=== PATIENT | female | born 1975 | race American Indian/Alaskan Native ===

== ENCOUNTER 2017-06-01 11:39 | Emergency (ER) | payer MEDICARE ==
[2017-06-01 11:55] VITALS: BP 138/94
[2017-06-01] MEDS ORDERED: DELTASONE PO ONE (12:49)
[2017-06-01] MEDS ORDERED: DUONEB *Not for PRN Use IH ONE ×2 (12:49→14:57)
--- NOTE | 2017-06-01 12:57 | Emergency Department Report ---
<JEFFREY MCKENNA - Last Filed: 06/01/17 15:53> ED General Adult HPI - General Chief complaint: Adult Asthma Stated complaint: ASTHMA/CHEST PAIN Time Seen by Provider: 06/01/17 12:27 Source: patient Mode of arrival: Ambulatory Limitations: No Limitations - History of Present Illness Initial comments: pt is a 41 y/o aaf with hx of asthma with frequent hospitalization per patient , pt endorses cough wheezing sob, fever chills, and chest tightness x 3 days, there is no dizziness no lightheadedness no headache no n/v pt denies smoking no hx of [place], symptoms are exacerbated by activity as shortness of breath however pt advises this is usual course of Asthma exacerbation symptoms as of past, pt advises that she has tried albuterol inhaler at home but without improvement in symptoms , pt has primary care doctor, Dr. Mancia however unable to get appointment today. Onset/Timin -: days(s) Radiation: non-radiation Severity scale (0 -10): 5 Quality: other (shortness of breath ) Consistency: constant Improves with: other (albuterol inhaler) Worsens with: other (activity ) Associated Symptoms: chest pain, cough, shortness of breath. denies: confusion , diaphoresis, fever/chills, headaches, loss of appetite, malaise, nausea/ vomiting, rash, seizure, syncope, weakness Treatments Prior to Arrival: none - Related Data Home Medications Medication Instructions Recorded Confirmed Last Taken Cetirizine HCl [Zyrtec] 10 mg PO DAILY 07/31/13 10/27/15 04/01/14 Metoclopramide HCl [Reglan] 5 mg PO TIDAC 07/31/13 10/27/15 04/01/14 Montelukast [Singulair] 10 mg PO QPM 07/31/13 10/27/15 04/01/14 Omeprazole [Prilosec] 20 mg PO QDAY 07/31/13 10/27/15 04/01/14 Ranitidine HCl [Zantac] 300 mg PO QDAY 07/31/13 10/27/15 04/01/14 Previous Rx's Medication Instructions Recorded Last Taken Type Albuterol Sulfate [Ventolin HFA] 2 puff IH Q4H PRN #1 hfa.aer.ad 10/27/15 Unknown Rx Fluticasone/Salmeterol [Advair 1 puff IH BID #1 disk.w.dev 10/27/15 Unknown Rx Diskus 500-50 mcg] predniSONE [Deltasone] 40 mg PO QDAY 5 Days 10/27/15 Unknown Rx Azithromycin [Zithromax Z-MERLY] 250 mg PO DAILY #4 tab 06/01/17 Unknown Rx predniSONE [Deltasone] 40 mg PO DAILY #10 tablet 06/01/17 Unknown Rx Allergies Allergy/AdvReac Type Severity Reaction Status Date / Time kiwi Allergy Unknown Verified 06/01/17 11:57 methylprednisolone sodium Allergy Swelling Verified 06/01/17 11:56 succinate [From Solu-Medrol] peach Allergy Unknown Verified 06/01/17 11:57 peanut Allergy Angioedema Verified 06/01/17 11:56 shellfish derived Allergy Unknown Verified 06/01/17 11:56 soybean Allergy Unknown Verified 06/01/17 11:56 strawberry Allergy Unknown Verified 06/01/17 11:57 watermelon Allergy Unknown Verified 06/01/17 11:57 wheat Allergy Unknown Verified 06/01/17 11:56 ED Review of Systems ROS: Stated complaint: ASTHMA/CHEST PAIN Other details as noted in HPI Constitutional: chills, fever, malaise. denies: diaphoresis, weakness Eyes: denies: eye pain, eye discharge, vision change ENT: throat pain Respiratory: cough, shortness of breath, wheezing. denies: stridor Cardiovascular: chest pain (cp describesd as chest tightness ). denies: palpitations Endocrine: no symptoms reported Gastrointestinal: denies: abdominal pain, nausea, diarrhea Genitourinary: denies: urgency, dysuria, discharge Musculoskeletal: denies: back pain, joint swelling, arthralgia Skin: denies: rash, lesions Neurological: denies: headache, weakness, paresthesias Psychiatric: denies: anxiety, depression Hematological/Lymphatic: denies: easy bleeding, easy bruising ED Past Medical Hx - Past Medical History Hx GERD: Yes Hx Asthma: Yes Additional medical history: reflux - Surgical History Additional Surgical History: 2 ventral hernia repairs; Tubal 2000;. Anoop fundoplication x 3 - Social History Smoking Status: Never Smoker Substance Use Type: None - Medications Home Medications: Home Medications Medication Instructions Recorded Confirmed Last Taken Type Cetirizine HCl [Zyrtec] 10 mg PO DAILY 07/31/13 10/27/15 04/01/14 History Metoclopramide HCl [Reglan] 5 mg PO TIDAC 07/31/13 10/27/15 04/01/14 History Montelukast [Singulair] 10 mg PO QPM 07/31/13 10/27/15 04/01/14 History Omeprazole [Prilosec] 20 mg PO QDAY 07/31/13 10/27/15 04/01/14 History Ranitidine HCl [Zantac] 300 mg PO QDAY 07/31/13 10/27/15 04/01/14 History Albuterol Sulfate [Ventolin HFA] 2 puff IH Q4H PRN #1 hfa.aer.ad 10/27/15 Unknown Rx Fluticasone/Salmeterol [Advair 1 puff IH BID #1 disk.w.dev 10/27/15 Unknown Rx Diskus 500-50 mcg] predniSONE [Deltasone] 40 mg PO QDAY 5 Days 10/27/15 Unknown Rx Azithromycin [Zithromax Z-MERLY] 250 mg PO DAILY #4 tab 06/01/17 Unknown Rx predniSONE [Deltasone] 40 mg PO DAILY #10 tablet 06/01/17 Unknown Rx ED Physical Exam - General Limitations: No Limitations General appearance: alert, in no apparent distress - Head Head exam: Present: atraumatic, normocephalic - Eye Eye exam: Present: normal appearance - ENT ENT exam: Present: normal exam, mucous membranes moist, TM's normal bilaterally , normal external ear exam - Neck Neck exam: Present: normal inspection, full ROM. Absent: lymphadenopathy, thyromegaly - Respiratory Respiratory exam: Present: chest wall tenderness, decreased breath sounds ( bilat lower lobes ). Absent: respiratory distress, rales, rhonchi, stridor - Cardiovascular Cardiovascular Exam: Present: regular rate, normal rhythm, normal heart sounds. Absent: systolic murmur, diastolic murmur, rubs, gallop - GI/Abdominal GI/Abdominal exam: Present: soft, normal bowel sounds - Rectal Rectal exam: Present: deferred - Extremities Exam Extremities exam: Present: normal inspection - Back Exam Back exam: Present: normal inspection - Neurological Exam Neurological exam: Present: alert, oriented X3 - Psychiatric Psychiatric exam: Present: normal affect, normal mood - Skin Skin exam: Present: warm, dry, intact, normal color. Absent: rash ED Course Vital Signs 06/01/17 11:50 Temperature 98.7 F Pulse Rate 91 H Respiratory 18 Rate Blood Pressure 138/94 O2 Sat by Pulse 100 Oximetry ED Medical Decision Making - Lab Data Result diagrams: 06/01/17 13:07 06/01/17 13:07 - EKG Data EKG shows normal: sinus rhythm Rate: normal - EKG Data When compared to previous EKG there are: no significant change Interpretation: normal EKG, LVH EKG screened by ED Attending , NO STEMI, NSR with LVH, [place]:148ms, QRS: 82ms, QT: 366 ms 06/01/17 15:18 - Radiology Data Radiology results: report reviewed no opacities no infiltrates - Medical Decision Making pt is a 41 y/o aaf with hx of asthma with frequent hospitalization per patient , pt endorses cough wheezing sob, fever chills, and chest tightness x 3 days, there is no dizziness no lightheadedness no headache no n/v pt denies smoking no hx of [place], symptoms are exacerbated by activity as shortness of breath however pt advises this is usual course of Asthma exacerbation symptoms as of past, pt advises that she has tried albuterol inhaler at home but without improvement in symptoms , pt has primary care doctor, Dr. Mancia however unable to get appointment today. exam: lungs with exp wheezing throughout with decreased air movement, ENT: normal , airway is patent no exudate no lesions uvula midlline no stridor, cv: s1 and s2 no mrg, plan: neb, steroids, mag, reassess, risk factors: hx of persistent Asthma, current [place] Heart score: 0 , [place]: 0, PERC: 0 1524: reassessment pt advises breathing much improved, lung with increased air movement , mild exp wheezing, pt is ambulatory around entire Emergency department and return to room hr 92, O2 stat: 98% room air and no increase in sob, wheezing or symptoms pt denies dizziness no lightheadedness no cp, pt has ride to home via [employer], pt endorses that she has albuterol, and advair at home, pt given azithromycin in ed, will dc with zpack, prednisone, pt will continue albuterol and advair as scheduled will return to emergency if symptoms worsen, pt will follow up with Dr. Mancia ion 3 days, pt verbalized agreement and understanding with discharge plan. pt is currently a/o x 3 ambulatory with nad at this time. Critical care attestation.: If time is entered above; I have spent that time in minutes in the direct care of this critically ill patient, excluding procedure time. ED Disposition Disposition: DC-01 TO HOME OR SELFCARE Is pt being admited?: No Does the pt Need Aspirin: No Condition: Good Instructions: Asthma (ED), Chronic Bronchitis (ED) Prescriptions: Azithromycin [Zithromax Z-MERLY] 250 mg PO DAILY #4 tab predniSONE [Deltasone] 40 mg PO DAILY #10 tablet Referrals: REBEKAH MANCIA MD [Primary Care Provider] - 3-5 Days Forms: Work/School Release Form(ED) Time of Disposition: 15:53 <RENNY DIA - Last Filed: 06/05/17 11:18> ED Medical Decision Making - Lab Data Result diagrams: 06/01/17 13:07 06/01/17 13:07 - Medical Decision Making I have seen and examined this patient myself. I agree with the PA or [employer] plan as discussed. Gene Dia
[2017-06-01 13:42] LABS: Alanine Aminotransferase 14 units/L (7-56); Alkaline Phosphatase 123 units/L (35-129); Anion Gap 17 mmol/L; Blood Urea Nitrogen 7 mg/dL (7-17); Calcium 9.1 mg/dL (8.4-10.2); Carbon Dioxide 24 mmol/L (22-30); Chloride 103.4 mmol/L (98-107); Glucose 94 mg/dL (65-100); Potassium 3.8 mmol/L (3.6-5.0); Sodium 141 mmol/L (137-145); Total Protein 8.2 g/dL (6.3-8.2)
--- NOTE | 2017-06-01 14:34 | XRay Report ---
ROUTINE CHEST, TWO VIEWS: HISTORY: Shortness of breath. The left hemidiaphragm is mildly elevated. The lungs are clear. No pleural effusion or pneumothorax. Heart and mediastinal structures are within normal limits. The bony structures are intact. IMPRESSION: Mildly elevated left hemidiaphragm. Otherwise, unremarkable chest films.
[2017-06-01 14:41] LABS: Basophils % (Auto) 0.8 % (0.0-1.8); Eosinophils % (Auto) 1.5 % (0.0-4.3); Hematocrit 29.9 % (30.3-42.9); Hemoglobin 9.4 gm/dl (10.1-14.3); Mean Corpuscular HGB Conc 31 % (30-34); Mean Corpuscular Hemoglobin 27 pg (28-32); Mean Corpuscular Volume 85 fl (79-97); Platelet Count 376 K/mm3 (140-440); Red Blood Count 3.52 M/mm3 (3.65-5.03); Red Cell Distribution Width 17.7 % (13.2-15.2); White Blood Count 5.9 K/mm3 (4.5-11.0)
[2017-06-01] MEDS ORDERED: MAGNESIUM SULFATE 2GM/50ML 2 GM/50 ML BAG IV ONE (14:57)
[2017-06-01] MEDS ORDERED: ZITHROMAX PO ONE (14:57)
[2017-06-01 15:14] LABS: Bilirubin,Urine NEG (Negative); Blood,Urine NEG (Negative); Ketones,Urine TR mg/dL (Negative); Leukocyte Esterase,Urine TR (Negative); Mucus,Urine FEW /HPF; Nitrite,Urine NEG (Negative); Protein,Urine <15 mg/dL mg/dL (Negative); Urobilinogen,Urine < 2.0 mg/dL (<2.0)
== END 2017-06-01 15:57 | disposition home or self-care (01) ==
LOC: ED 11:39
DX: R07.89 Other chest pain (principal); R06.2 Wheezing; K21.9 Gastro-esophageal reflux disease without esophagitis; J45.909 Unspecified asthma, uncomplicated; Z91.018 Allergy to other foods; Z91.013 Allergy to seafood
CPT/HCPCS: 36415; 71020; 80053; 81001; 81025; 84484; 85025; 93005; 93010; 94640; 96365; 99284; J3475; J7512

== ENCOUNTER 2017-08-08 08:09 | Emergency (ER) | payer MEDICARE ==
[2017-08-08 08:39] VITALS: BP 140/84
[2017-08-08 09:07] LABS: Basophils % (Auto) 0.8 % (0.0-1.8); Eosinophils % (Auto) 3.3 % (0.0-4.3); Hematocrit 26.9 % (30.3-42.9); Hemoglobin 8.8 gm/dl (10.1-14.3); Mean Corpuscular HGB Conc 33 % (30-34); Mean Corpuscular Hemoglobin 28 pg (28-32); Mean Corpuscular Volume 87 fl (79-97); Platelet Count 272 K/mm3 (140-440); Red Cell Distribution Width 16.7 % (13.2-15.2); White Blood Count 4.7 K/mm3 (4.5-11.0)
== END 2017-08-08 08:41 | disposition left against medical advice (07) ==
LOC: ED 08:09
DX: N93.9 Abnormal uterine and vaginal bleeding, unspecified (principal); Z53.21 Procedure and treatment not carried out due to patient leaving prior to being seen by health care provider
CPT/HCPCS: 36415; 84702; 85025; 86850; 86900; 86901

== ENCOUNTER 2017-09-05 08:26 | Emergency (ER) | payer MEDICARE ==
[2017-09-05 08:38] VITALS: BP 148/98
[2017-09-05 09:10] LABS: Hemoglobin 7.6 gm/dl (10.1-14.3); Mean Corpuscular HGB Conc 32 % (30-34); Mean Corpuscular Hemoglobin 26 pg (28-32); Mean Corpuscular Volume 83 fl (79-97); Platelet Count 425 K/mm3 (140-440); Red Blood Count 2.91 M/mm3 (3.65-5.03); Red Cell Distribution Width 16.8 % (13.2-15.2); White Blood Count 5.5 K/mm3 (4.5-11.0)
[2017-09-05 09:11] LABS: Basophils % (Auto) 0.9 % (0.0-1.8); Eosinophils % (Auto) 2.5 % (0.0-4.3)
[2017-09-05 09:32] LABS: Anion Gap 20 mmol/L; BUN/Creatinine Ratio 14; Blood Urea Nitrogen 10 mg/dL (7-17); Calcium 9.2 mg/dL (8.4-10.2); Carbon Dioxide 21 mmol/L (22-30); Chloride 103.5 mmol/L (98-107); Glucose 97 mg/dL (65-100); Potassium 4.2 mmol/L (3.6-5.0); Sodium 140 mmol/L (137-145)
--- NOTE | 2017-09-05 09:39 | XRay Report ---
ROUTINE CHEST, TWO VIEWS: HISTORY: Shortness of breath. The trachea, heart, mediastinal contour, lung mckinnon and bony thorax are unremarkable. The left hemidiaphragm remains mildly elevated or eventrated. No significant change since 06/01/17. IMPRESSION: Unremarkable chest x-ray.
== END 2017-09-05 17:18 | disposition left against medical advice (07) ==
LOC: ED 08:26
DX: R06.00 Dyspnea, unspecified (principal); Z53.21 Procedure and treatment not carried out due to patient leaving prior to being seen by health care provider
CPT/HCPCS: 36415; 71020; 80048; 84484; 85025; 93005; 93010